=== PATIENT | male | born 1960 | race Caucasian/White ===

== ENCOUNTER 2023-05-17 18:17 | Emergency (ER) | payer OTHER | END 2023-05-17 18:42 | disposition left against medical advice (07) | LOC: ER 18:17 | DX: R07.81 Pleurodynia (principal); Z53.21 Procedure and treatment not carried out due to patient leaving prior to being seen by health care provider ==

== ENCOUNTER 2023-05-27 11:38 | Emergency (ER) | payer OTHER ==
[~2023-05-27] VITALS: Ht 182.9 cm; Wt 95.4 kg
[2023-05-27 12:12] LABS: Basophils # (auto) 0 10 ^3/uL (0-0.2); Eosinophils # (auto) 0.1 10 ^3/uL (0-0.8); Eosinophils % (auto) 2.7 % (0.0-7.0); Hematocrit 48.3 % (41.0-53.0); Hemoglobin 16.3 g/dL (13.5-17.5); Lymphocytes # (auto) 1.4 10 ^3/uL (0.4-5.4); Mean Corpuscular Hgb Conc. 33.8 g/dL (32.0-36.0); Mean Corpuscular Volume 88.9 fL (80.0-100.0); Monocytes # (auto) 0.6 10 ^3/uL (0-1.3); Monocytes % (auto) 11.8 % (0.0-12.0); Neutrophils # (auto) 2.6 10 ^3/uL (1.6-8.6); Neutrophils % (auto) 54.5 % (37.0-80.0); Nucleated Red Blood Cells % 0.5 %; Red Blood Cells 5.43 10^6/uL (4.5-5.90); Red Cell Distribution Width 13.1 % (11.8-14.3); White Blood Cell 4.8 10^3/uL (4.4-10.8)
[2023-05-27 12:22] LABS: Anion Gap 6 (5-15); Carbon Dioxide 28 mmol/L (20-30); Chloride 104 mmol/L (98-107); Potassium 3.8 mmol/L (3.5-5.1); Sodium 138 mmol/L (136-145)
[2023-05-27 12:23] LABS: Calcium 9.8 mg/dL (8.5-10.1)
[2023-05-27 12:28] LABS: BUN/Creatinine Ratio 9.1 (10.0-20.0); Blood Urea Nitrogen 10 mg/dL (9-23); Glucose 110 mg/dL (74-106)
[2023-05-27 13:08] LABS: Urine Bacteria NONE SEEN /hpf (None Seen); Urine Blood Negative /uL (Negative); Urine Clarity Clear (Clear); Urine Color Colorless (Yellow); Urine Protein, UAD Negative (Negative); Urine Specific Gravity 1.007 (1.001-1.035); Urine Urobilinogen Normal (Negative); Urine WBC <1 /hpf (0 - 3)
[2023-05-27 18:30] VITALS: BP 148/80; PULSE 75; RESP 14; TEMP 97.6; O2SAT 95
== END 2023-05-27 18:33 | disposition home or self-care (01) ==
LOC: ER 11:38
DX: R20.2 Paresthesia of skin (principal); M54.10 Radiculopathy, site unspecified; I10 Essential (primary) hypertension; E78.5 Hyperlipidemia, unspecified
CPT/HCPCS: 36415; 70450; 80048; 81001; 82962; 84484; 85025; 93005

== ENCOUNTER 2023-09-17 16:45 | Emergency (ER) | payer OTHER ==
[~2023-09-17] VITALS: Ht 182.9 cm; Wt 94.5 kg
[2023-09-17 16:48] VITALS: BP 144/88; PULSE 96; RESP 18; O2SAT 98
== END 2023-09-17 19:25 | disposition home or self-care (01) ==
LOC: ER 16:45
DX: G89.18 Other acute postprocedural pain (principal); M79.661 Pain in right lower leg; I10 Essential (primary) hypertension; E78.5 Hyperlipidemia, unspecified; Z98.890 Other specified postprocedural states
CPT/HCPCS: 93971